=== PATIENT | male | born 1975 | race Caucasian/White ===

== ENCOUNTER 2016-03-02 15:14 | Emergency (ER) | payer SELFPAY ==
[~2016-03-02] VITALS: Ht 167.6 cm; Wt 75.0 kg
[2016-03-02 15:19] VITALS: Ht 167.6 cm; Wt 75.0 kg
--- NOTE | 2016-03-02 16:19 | ERD ---
ER Documentation Chief Complaint Date/Time DATE: 03/02/16 TIME: 16:18 Chief Complaint rt shoulder pain after tree branch fell on the arm HPI 40 y/o male presents to ED for pain to posterior neck, right shoulder, mid back , lower back, right elbow, right forearm, right wrist, right hand, right knee, right ankle. Pain was described as achy with a rate of 10/10. His pain started after a branch of 3 fell off his posterior neck, right shoulder. This happened at :30 in his backyard. Did not take any medications for pain. Denies headache, head injury, loss of consciousness, dizziness, blurry vision, changes in vision, photophobia, facial pain, ear pain, throat pain, difficulty swallowing, chest pain, cough, hemoptysis, abdominal pain, loss of appetite, nausea, vomiting, hematochezia, diarrhea, constipation, urinary symptoms, bladder and bowel incontinences, numbness or tingling sensation, recent travel , recent exposure to illness, recent antibiotic use in the last 3 months, fever , chills. Allergy: NKA PMH: Denies Medications: Denies Surgery: Denies Family history: Denies Quit smoking cigarettes 5 years ago. Primary Social History: Denies use of alcohol, use of illegal drugs. ROS All systems reviewed and are negative except as per history of present illness. Allergies Allergies: Coded Allergies: No Known Allergies (Verified Allergy, Unknown, 03/02/16) PMhx/Soc Medical and Surgical Hx: pt denies Medical Hx, pt denies Surgical Hx Hx Alcohol Use: No Hx Substance Use: No Hx Tobacco Use: No Smoking Status: Never smoker FmHx Denies Physical Exam Vitals Vital Signs Date Time Temp Pulse Resp B/P Pulse Ox O2 Delivery O2 Flow Rate FiO2 03/02/16 15:19 98.1 88 20 165/80 99 Physical Exam CONSTITUTIONAL: Well-appearing; well-nourished; in no apparent distress. HEAD: Normocephalic; atraumatic. EYES: Conjunctiva clear, sclera non-icteric, EOM intact. PERRL Ears: Hearing intact. EACs clear, TMs non-bulging, non-inflamed, translucent & mobile, ossicles normal appearance, No obstructions, no erythema, no discharges Nose: No obstructions. No polyps. No external lesions. Mucosa non-inflamed. No external lesions, septum and turbinates normal. No rhinorrhea. No discharges. Frontal sinus is non-tender to palpation. Maxillary sinus is non-tender to palpation. MOUTH: Moist mucous membranes, no lesion, no obstructions, no vesicles, no thrush, patent airway Throat: Uvula in midline. Right tonsil is +1 with no erythema, no exudate. Left tonsil is +1 with no erythema, no exudate. Tolerating secretions well. Good gag reflex. Patent airway. Neck: Supple, without lesions, bruits, or adenopathy. No mass. Thyroid non- enlarged and non-tender to palpation. CHEST: Symmetrical chest. Respirations even and not labored. No retractions noted. No crepitus. No signs of chest injury. No signs of pneumothorax. CARDIOVASCULAR: Normal S1, S2. RRR. No murmurs, gallops. RESPIRATORY: Normal chest excursion with respiration; breath sounds clear and equal bilaterally; no wheezes, rhonchi, or rales. Breathing even and unlabored. Speaking in clear, full, and complete sentences w/ ease. ABDOMEN: Normal bowel sounds normal. Soft, round, non-distended, non-guarding, no tenderness, no rebound, no organomegaly, no masses, no pulsating abdominal mass. No hernia. No peritoneal signs. : No CVA tenderness. BACK: Symmetrical shoulder. Spine is midline without deformity, tenderness. No evidence of trauma or deformity. PELVIS: Stable pelvis. No evidence of trauma or deformity. MUSCULOSKELETAL:Normal gait and station. No misalignment, asymmetry, crepitation , defects, tenderness, masses, effusions, decreased range of motion, instability , atrophy or abnormal strength or tone in the head, neck, spine, ribs, pelvis or extremities. No calf tenderness. Good range of motion of the neck without difficulty. Cervical spine has mild tenderness to palpation. Thoracic spine has mild tenderness. Lumbar spine has mild tenderness. On observation, patient has good range of motion of the spine. Right shoulder has no obvious swelling, no obvious deformity but but has limited range of motion, and mild tenderness. Right elbow has no obvious swelling and deformity but has limited range of motion and has mild tenderness to palpation. Right forearm has no obvious swelling or deformity but this mild tenderness to palpation on the volar and dorsal aspect. Right wrist has no obvious swelling or deformity but this limited range of motion and mild tenderness to palpation. Right hand has no obvious swelling or deformity but is mild tenderness to palpation. Right knee has no obvious swelling or deformity with this mild abrasion and mild tenderness to medial and lateral aspect during palpation, with good range of motion. Right ankle has mild tenderness to anterior and medial aspect but is good range of motion with mild tenderness. Circulation and sensation is intact. No neurovascular deficits. Skin color is normal. NEUROVASCULAR: Distal pulses are present. Pedal pulse are present, equal, and normal. Capillary refills are < 2 seconds. NEUROLOGIC: Alert and oriented x4. Speaks full and clear sentences. Cranial Nerves II-XII normal. Sensation to pain, touch, and proprioception normal. Grossly unremarkable. No neurologic deficits. Romberg test is negative. PSYCHOLOGICAL: The patients mood and manner are appropriate. No hallucinations , delusions. Not SI. Not HI. Has the capacity to decide for self SKIN: Normal for age and ethnicity; warm; dry; good turgor; no apparent lesions or exudates. No rashes, hives, discoloration. Intact. Results 24 hrs Current Medications Medications (Trade) Dose Ordered Sig/Americo Route PRN Reason Start Time Stop Time Status Last Admin Dose Admin Acetaminophen/ Hydrocodone Bitart (Cebolla (7.5-325)) 1 tab ONCE ONCE PO 03/02/16 17:00 03/02/16 17:00 DC Acetaminophen/ Hydrocodone Bitart (Cebolla (10/325)) 1 tab ONCE ONCE PO 03/02/16 17:00 03/02/16 17:01 DC 03/02/16 16:43 Procedures/MDM Examination:MUSCULOSKELETAL:Normal gait and station. No misalignment, asymmetry , crepitation, defects, tenderness, masses, effusions, decreased range of motion , instability, atrophy or abnormal strength or tone in the head, neck, spine, ribs, pelvis or extremities. No calf tenderness. Good range of motion of the neck without difficulty. Cervical spine has mild tenderness to palpation. Thoracic spine has mild tenderness. Lumbar spine has mild tenderness. On observation, patient has good range of motion of the spine. Right shoulder has no obvious swelling, no obvious deformity but but has limited range of motion, and mild tenderness. Right elbow has no obvious swelling and deformity but has limited range of motion and has mild tenderness to palpation. Right forearm has no obvious swelling or deformity but this mild tenderness to palpation on the volar and dorsal aspect. Right wrist has no obvious swelling or deformity but this limited range of motion and mild tenderness to palpation. Right hand has no obvious swelling or deformity but is mild tenderness to palpation. Right knee has no obvious swelling or deformity with this mild abrasion and mild tenderness to medial and lateral aspect during palpation, with good range of motion. Right ankle has mild tenderness to anterior and medial aspect but is good range of motion with mild tenderness. Circulation and sensation is intact. No neurovascular deficits. Skin color is normal. NEUROVASCULAR: Distal pulses are present. Pedal pulse are present, equal, and normal. Capillary refills are < 2 seconds. Disease process, medical treatment was explained to the patient and family member. They verbalized understanding and agreed with the diagnostic tests, medical treatment, and follow-up care. Radiology: CT of the cervical spine: No acute fracture or traumatic subluxation. X rays revealed no acute fractures, deformity, abnormality. Radiologist noted 1.1 cm metallic fragment noted in the posterior aspect of the lower leg soft tissue. Case and medical management was discussed with Dr. Zia Mei, supervising doctor. He agreed with present treatment and after care as well as follow-up care. Treatment: Cebolla. Right arm sling. No neurovascular deficits prior to and after the application of sling. Re-evaluation: Patient denies pain at this time. Consultation: None Differential diagnosis: Fracture versus contusion versus sprain. Medical decision makin40 y/o male presents to ED for pain to posterior neck, right shoulder, mid back, lower back, right elbow, right forearm, right wrist, right hand, right knee, right ankle. Pain was described as achy with a rate of 10/10. His pain started after a branch of 3 fell off his posterior neck, right shoulder. This happened at around 14:30 in his backyard. Did not take any medications for pain. Patient's complaint, symptoms, physical findings, diagnostic results are consistent with final diagnosis of multiple condition. Medications prescribed are the following: Cebolla Patient and family member are made aware of the side effects and adverse reactions of the medications prescribed. Instructed on when to seek emergent and medical attention in case allergic/anaphylactic reactions or severe side effects and or adverse reactions to medications. Patient and family member verbalized understanding. Patient instructed Instructed to follow-up with his PCP in 24-48 hours. PCP to refer patient to orthopedic doctor in 24-48 hours. Instructed to Call 911 for chest pain, shortness of breath. Advised to come back here in ED as soon as possible for severity of symptoms which includes but not limited to: any new symptoms; shortness of breath/difficulty of breathing; cardiovascular changes; severe gastrointestinal symptoms; signs and symptoms of bleeding and or infection; signs of compartment syndrome/neurovascular changes; neurological changes/deficits. Patient and family member verbalized understanding. Upon discharge, patient is alert and oriented x 4, speaks full and clear sentences, denies pain, has no neurological deficits, has no neurovascular deficits, difficulty of breathing. Breathing even and unlabored. Lung sounds are clear to auscultation. Not in distress. Appears comfortable. Appears satisfied with care provided here in ED. Departure Condition: Good Additional Instructions: Instructed to follow-up with his PCP in 24-48 hours. PCP to refer patient to orthopedic doctor in 24-48 hours. Instructed to Call 911 for chest pain, shortness of breath. Advised to come back here in ED as soon as possible for severity of symptoms which includes but not limited to: any new symptoms; shortness of breath/difficulty of breathing; cardiovascular changes; severe gastrointestinal symptoms; signs and symptoms of bleeding and or infection; signs of compartment syndrome/neurovascular changes; neurological changes/deficits. Patient and family member verbalized understanding. WON ORELLANA Mar 02, 2016 16:19
[2016-03-02] MEDS ORDERED: HYDROCODONE/APAP (7.5/325) TAB PO ONE (17:00)
[2016-03-02] MEDS ORDERED: HYDROCODONE/APAP (10/325) TAB PO ONE (17:00)
--- NOTE | 2016-03-02 17:25 | RADRPT ---
PROCEDURE: CT cervical spine without contrast CLINICAL INDICATION: Injury. Neck pain. TECHNIQUE: CT scan of the cervical spine was performed [facility] No IV contrast was administered. Coronal and sagittal reformatted images were obtained from th e axial source images. Images were reviewed on a high-resolution PACS workstation. One or more the f ollowing does reduction techniques were utilized: Automated exposure control, adjustment of the mA/ or kV according to patient's size, or use of iterative reconstruction technique. Exam CTDI = 22.13 m Gy and the DLP = 632.26 mGy-cm. COMPARISON: None available. FINDINGS: There is straightening of the alignment of the cervical spine with loss of the normal cervical lordo sis. Alignment remains intact. No acute fracture or dislocation is seen. The vertebral body heigh ts and disk spaces are preserved. No significant cervical spinal canal or foraminal stenosis is note d. No mass, hematoma, or other soft tissue abnormality is seen. IMPRESSION: 1. No acute fracture or traumatic subluxation. 2. Straightening of normal cervical lordosis. RPTAT: AA .Seema Jimenez MD, MD Date Time Electronically viewed and signed by .Seema Jimenez MD, MD on 03/02/2016 17:25 .N/
--- NOTE | 2016-03-02 18:33 | RADRPT ---
PROCEDURE: XR Lumbar Spine. CLINICAL INDICATION: Low back pain. TECHNIQUE: Three views of the lumbar spine are available for review COMPARISON: None available FINDINGS: There is straightening of normal lumbar lordosis. Alignment is intact. No acute fracture or disloc ation is seen. The vertebral body heights and disk spaces are preserved. IMPRESSION: 1. No acute fracture or dislocation. 2. Straightening of normal lumbar lordosis. RPTAT: AA .Seema Jimenez MD, Date Time Electronically viewed and signed by .Seema Jimenez MD, on 03/02/2016 18:33 .N/
--- NOTE | 2016-03-02 18:34 | RADRPT ---
PROCEDURE: XR Knee. CLINICAL INDICATION: Right knee pain. TECHNIQUE: Three views of the right knee are available for review. COMPARISON: None available FINDINGS: No acute fracture or dislocation is seen. No radiopaque foreign body is identified. Alignment is a natomic. No significant soft tissue swelling is present. IMPRESSION: 1. No acute fracture or dislocation is seen. RPTAT: AA .Seema Jimenez MD, MD Date Time Electronically viewed and signed by .Seema Jimenez MD, MD on 03/02/2016 18:33 .N/
--- NOTE | 2016-03-02 18:35 | RADRPT ---
PROCEDURE: XR Tibia and Fibula. CLINICAL INDICATION: Pain. TECHNIQUE: Two views of the right tibia and fibula are available for review. COMPARISON: None available FINDINGS: No acute fracture or dislocation is seen. No radiopaque foreign body is identified. A 1.1 cm metal lic fragment is noted in the posterior aspect of the lower leg soft tissue. Otherwise no significan t soft tissue swelling is noted. IMPRESSION: 1. No acute fracture or dislocation. 2. A 1.1 cm metallic fragment is noted in the posterior aspect of the lower leg soft tissue. RPTAT: AA .Seema Jimenez MD, Date Time Electronically viewed and signed by .Seema Jimenez MD, on 03/02/2016 18:34 .N/
--- NOTE | 2016-03-02 18:36 | RADRPT ---
PROCEDURE: XR Shoulder. CLINICAL INDICATION: Right shoulder pain TECHNIQUE: Three views of the right shoulder are available for review. COMPARISON: None available FINDINGS: No acute fracture or dislocation is seen. No radiopaque foreign body is identified. The distal clav icle is mildly elevated in respect to acromioclavicular joint concerning for mild AC separation. Th e visualized portions of the right clavicle and upper right rib cage are equally unremarkable. IMPRESSION: 1. No acute fracture or dislocation is seen. 2. The distal clavicle is mildly elevated in respect to acromioclavicular joint concerning for mild AC separation. RPTAT: AA .Seema Jimenez MD, Date Time Electronically viewed and signed by .Seema Jimenez MD, on 03/02/2016 18:36 .N/
--- NOTE | 2016-03-02 18:37 | RADRPT ---
PROCEDURE: XR Wrist. CLINICAL INDICATION: Right wrist pain TECHNIQUE: AP, lateral and oblique views of the right wrist were performed. COMPARISON: No prior studies are available for comparison. FINDINGS: No evidence of fracture, dislocation, or subluxation is seen. The bones appear well mineralized. The joint spaces are well preserved. There is no significant soft tissue swelling. IMPRESSION: 1. No acute fracture or dislocation. RPTAT: AA .Seema Jimenez MD, Date Time Electronically viewed and signed by .Seema Jimenez MD, MD on 03/02/2016 18:37 .N/
--- NOTE | 2016-03-02 18:37 | RADRPT ---
PROCEDURE: XR Forearm. CLINICAL INDICATION: Injury. Pain. TECHNIQUE: AP and lateral views of the right forearm were obtained. COMPARISON: No prior studies are available for comparison. FINDINGS: There is no acute fracture or dislocation. No significant soft tissue swelling is noted. IMPRESSION: 1. No acute fracture or dislocation. RPTAT: AA .Seema Jimenez MD, MD Date Time Electronically viewed and signed by .Seema Jimenez MD, MD on 03/02/2016 18:36 .N/
--- NOTE | 2016-03-02 18:38 | RADRPT ---
PROCEDURE: XR Hand. CLINICAL INDICATION: Right hand pain. TECHNIQUE: Three views of the right hand were obtained. COMPARISON: No prior studies are available for comparison. FINDINGS: No acute fracture or dislocation is noted. Bone mineralization is normal. No significant soft tissu e swelling is seen. IMPRESSION: 1. No acute fracture or dislocation is seen. RPTAT: AA .Seema Jimenez MD, Date Time Electronically viewed and signed by .Seema Jimenez MD, on 03/02/2016 18:38 .N/
[2016-03-02] MEDS ORDERED: HYDR-906 PO (19:06)
[2016-03-02 19:22] VITALS: BP 130/74; PULSE 84; RESP 18; TEMP 98.8
== END 2016-03-02 19:23 | disposition home or self-care (01) ==
LOC: FTE 15:14
DX: S19.9XXA Unspecified injury of neck, initial encounter (principal); S29.9XXA Unspecified injury of thorax, initial encounter; S39.92XA Unspecified injury of lower back, initial encounter; S49.91XA Unspecified injury of right shoulder and upper arm, initial encounter; S59.901A Unspecified injury of right elbow, initial encounter; S59.911A Unspecified injury of right forearm, initial encounter; S69.91XA Unspecified injury of right wrist, hand and finger(s), initial encounter; S80.211A Abrasion, right knee, initial encounter; S99.911A Unspecified injury of right ankle, initial encounter; W20.8XXA Other cause of strike by thrown, projected or falling object, initial encounter; Y92.007 Garden or yard of unspecified non-institutional (private) residence as the place of occurrence of the external cause; Z87.891 Personal history of nicotine dependence
CPT/HCPCS: 72100; 72125; 73562; 73590